=== PATIENT | female | born 1945 | race Caucasian/White ===

== ENCOUNTER 2016-10-09 15:50 | Inpatient (IN) | payer OTHER, MEDICARE ==
[~2016-10-09] VITALS: Ht 162.6 cm; Wt 69.5 kg
[~2016-10-09 15:50] MED LIST: AMLODIPINE BESYL5 MG PO; CHLORTHALIDONE25 MG PO; CIPRO500 MG PO; GABAPENTIN300 MG PO; GLUCOPHAGE500 MG PO; JANUVIA25 M1 PO; LEVEMIR100 UNIT/2 SC; LIPITOR40 MG PO; LITE COAT ASPI325 M1 PO; LOSARTAN POTAS100 MG PO; NORCO 10/3251 TABLET PO; NORVASC5 MG PO; PROZAC40 MG PO
[2016-10-09 16:12] LABS: EOSINOPHIL (%) 1.6 % (0-5); EOSINOPHIL COUNT 0.1 K/uL (0-0.3); HEMATOCRIT 40.8 % (36.0-46.0); IMMATURE GRANULOCYTE (%) 0.4 % (0.0-0.7); IMMATURE GRANULOCYTE COUNT 0.3 K/uL; LYMPHOCYTE COUNT 1.3 K/uL (1.0-2.8); MCH 26.7 PG (29.0-34.0); MCHC 33.8 G/DL (30.0-36.0); MCV 79.1 FL (83-99); MEAN PLAT.VOLUME 8.9 uM^3 (9.5-12.4); MONOCYTE (%) 5.8 % (3-12); MONOCYTE COUNT 0.4 K/uL (0-0.8); NEUTROPHIL (%) 72.5 % (45-76); NEUTROPHIL COUNT 4.8 K/uL (1.8-6.4); PLATELET COUNT 165 K/uL (156-360); RED BLOOD COUNT 5.16 M/uL (3.80-5.20); WHITE BLOOD COUNT 6.7 K/uL (4.1-10.2)
[2016-10-09 16:21] LABS: AMYLASE 54 IU/L (1-118); CHLORIDE 98 mEq/L (99-109); POTASSIUM 4.2 mEq/L (3.7-5.4); SODIUM 135 mEq/L (136-147)
[2016-10-09 16:22] LABS: INTER. NORMALIZED RATIO 1.1; PROTHROMBIN TIME 11.1 (9.2-11.2); PTT 25.8 (25-32)
[2016-10-09 16:23] LABS: GLUCOSE 306 mg/dL (70-99)
[2016-10-09 16:24] LABS: ANION GAP 19 MEQ/L (2-14)
[2016-10-09 16:26] LABS: GFR ESTIMATE (CALCULATED) 31 mL/min/; SERUM ETHYL ALCOHOL < 10 mg/dL
[2016-10-09 16:27] LABS: UREA NITROGEN (BUN) 16 mg/dL (9-23)
[2016-10-09 16:29] LABS: LIPASE 24 U/L (1.0-51.0)
[2016-10-09 16:33] LABS: TROP-I INTERPRETATION NEGATIVE; TROPONIN-I < 0.01 ng/mL (0.0-0.30)
[2016-10-09 17:40] LABS: AMPHETAMINE NEGATIVE (500 ng/mL); BENZODIAZEPINES NEGATIVE (150 ng/mL); COCAINE NEGATIVE (150 ng/mL); METHADONE NEGATIVE (200 ng/mL); METHAMPHETAMINE NEGATIVE (500 ng/mL); OPIATES (MORPHINE) PRESUMPTIVE POSITIVE (100 ng/mL); PHENCYCLIDINE NEGATIVE (25 ng/mL); THC CANNABINOIDS NEGATIVE (50 ng/mL); TRICYCLIC ANTIDEPRESSANTS NEGATIVE (300 ng/mL)
[2016-10-09 17:41] LABS: ADD MEDTOX COMMENT Y; BARBITURATES NEGATIVE (200 ng/mL); INTERNAL CONTROLS VALID? YES; OXYCODONE NEGATIVE (100 ng/mL); PROPOXYPHENE NEGATIVE (300 ng/mL)
[2016-10-09] MEDS ORDERED: ASPIRIN EC325 MG PO (17:47)
[2016-10-09] MEDS ORDERED: GLUCOPHAGE1000 MG PO (17:49)
[2016-10-09] MEDS ORDERED: VENLAFAXINE HC150 M1 PO (17:50)
[2016-10-09 18:05] LABS: COLOR LT. YELLOW ((YELLOW)); LEUKOCYTES NEGATIVE; NITRITE NEGATIVE
[2016-10-09 18:06] LABS: ADD MIUA? YES; BILIRUBIN NEGATIVE; BLOOD NEGATIVE; GLUCOSE (STRIP) 250; KETONES NEGATIVE; PROTEIN (STRIP) 30; UROBILINOGEN 0.2 MG/DL (0.2-1.0)
[2016-10-09 22:45] VITALS: BP 132/72
[2016-10-10 04:00] VITALS: BP 124/69
[2016-10-10 07:52] VITALS: BP 126/62
[2016-10-10 08:14] LABS: HEMATOCRIT 34.7 % (36.0-46.0); MCH 27.1 PG (29.0-34.0); MCHC 33.4 G/DL (30.0-36.0); MCV 81.1 FL (83-99); MEAN PLAT.VOLUME 9.8 uM^3 (9.5-12.4); PLATELET COUNT 112 K/uL (156-360); RBC DIS.WIDTH-CV 14.1 % (11.8-14.6); RBC DIS.WIDTH-SD 41.4 % (39-53); RED BLOOD COUNT 4.28 M/uL (3.80-5.20); WHITE BLOOD COUNT 4.4 K/uL (4.1-10.2)
[2016-10-10 08:31] LABS: HDL CHOLESTEROL 29 MG/DL (Desirable>=50); LDL CHOLESTEROL 128 mg/dL (Desirable<100); NON-HDL CHOLESTEROL 192 mg/dL (Desirable<160); TOTAL CHOLESTEROL 221 mg/dL (Desirable<200); TRIGLYCERIDES 320 MG/DL (Normal: <150)
[2016-10-10 08:35] LABS: Estimated Average Glucose 272 mg/dL (70-123); HEMOGLOBIN A1c (GLYCOHEMOGLOB) 11.1 % HGB (Below 5.7)
[2016-10-10 11:27] VITALS: BP 137/63
[2016-10-10 15:28] VITALS: BP 143/65
[2016-10-10 20:00] VITALS: BP 152/71
[2016-10-10 21:43] LABS: POINT-OF-CARE METER ID UU14174225
[2016-10-10 23:40] VITALS: BP 158/74
[2016-10-11 04:00] VITALS: BP 144/75
[2016-10-11 07:45] VITALS: BP 121/65
[2016-10-11 10:51] VITALS: BP 145/61
[2016-10-11 15:12] VITALS: BP 145/76
[2016-10-11 19:50] VITALS: BP 177/88
[2016-10-11 21:24] LABS: POINT-OF-CARE METER ID UU14174225
[2016-10-11 22:00] VITALS: BP 194/88
[2016-10-12 00:48] VITALS: BP 188/86
[2016-10-12 04:00] VITALS: BP 164/78
[2016-10-12 07:42] LABS: POINT-OF-CARE METER ID UU14174225
[2016-10-12 08:20] VITALS: BP 146/71
[2016-10-12 11:49] VITALS: BP 153/75
[2016-10-12 11:58] LABS: POINT-OF-CARE METER ID UU14174225
[2016-10-12 16:10] VITALS: BP 173/61
[2016-10-12 16:36] LABS: POINT-OF-CARE METER ID UU14174225
[2016-10-12 19:34] VITALS: BP 150/72
[2016-10-12 21:49] LABS: POINT-OF-CARE METER ID UU14174225
[2016-10-13] VITALS: BP 159/86
[2016-10-13 04:00] VITALS: BP 138/73
[2016-10-13 07:29] VITALS: BP 143/68
[2016-10-13] MEDS ORDERED: KEFLEX500 MG PO (08:54)
[2016-10-13 11:55] LABS: POINT-OF-CARE METER ID UU14174225
== END 2016-10-13 14:04 | DRG 65 ==
LOC: EME 15:50 → 5SOUTH 18:42 → EDOF 18:42 → 5SOUTH 22:37
PROVIDERS: Emergency Medicine; Family Medicine; Internal Medicine
DX: I63.9 Cerebral infarction, unspecified (principal); N17.9 Acute kidney failure, unspecified; E11.621 Type 2 diabetes mellitus with foot ulcer; L97.519 Non-pressure chronic ulcer of other part of right foot with unspecified severity; L03.031 Cellulitis of right toe; E11.42 Type 2 diabetes mellitus with diabetic polyneuropathy; E11.51 Type 2 diabetes mellitus with diabetic peripheral angiopathy without gangrene; M62.81 Muscle weakness (generalized); R25.1 Tremor, unspecified; E11.65 Type 2 diabetes mellitus with hyperglycemia; D69.6 Thrombocytopenia, unspecified; I10 Essential (primary) hypertension; R47.9 Unspecified speech disturbances; D86.9 Sarcoidosis, unspecified; E78.5 Hyperlipidemia, unspecified; Z79.4 Long term (current) use of insulin; Z86.73 Personal history of transient ischemic attack (TIA), and cerebral infarction without residual deficits
CPT/HCPCS: 70450; 70551; 73630; 80048; 80061; 81003; 82150; 82565; 82948; 83036; 83690; 84484; 84999; 85025; 85027; 85610; 85651; 85730; 86140; 86850; 86900; 86901; 87040; 87070; 87075; 87205; 92523 GN; 93880; 93926; 99281; 99285; G0008; G0480; J0690; J1644; J1815; J1953; J2060; J2250; J2543; J7030; J7050

== ENCOUNTER 2016-10-13 08:32 | Inpatient (IN) | payer OTHER, MEDICARE ==
[~2016-10-13] VITALS: Ht 162.6 cm; Wt 65.2 kg
[~2016-10-13 08:32] MED LIST changes: +ASPIRIN EC325 MG PO; +GLUCOPHAGE1000 MG PO; +VENLAFAXINE HC150 M1 PO
[2016-10-13] MEDS ORDERED: KEFLEX500 MG PO (08:54)
[2016-10-13 14:46] VITALS: BP 151/70
[2016-10-13 16:50] LABS: POINT-OF-CARE METER ID UU13113720
[2016-10-13 16:54] LABS: MCH 26.2 PG (29.0-34.0); MCHC 32.4 G/DL (30.0-36.0); MCV 80.7 FL (83-99); MEAN PLAT.VOLUME 9.6 uM^3 (9.5-12.4); PLATELET COUNT 96 K/uL (156-360); RBC DIS.WIDTH-CV 13.8 % (11.8-14.6); RBC DIS.WIDTH-SD 40.1 % (39-53); RED BLOOD COUNT 4.09 M/uL (3.80-5.20); WHITE BLOOD COUNT 3.1 K/uL (4.1-10.2)
[2016-10-13 17:19] LABS: ALKALINE PHOSPHATASE 107 IU/L (3-129); ANION GAP 9 MEQ/L (2-14); CHLORIDE 105 MEQ/L (99-109); GFR ESTIMATE (CALCULATED) 58 mL/min/; GLUCOSE 179 mg/dL (70-99); SAMPLE HEMOLYSIS CHECK 0; SAMPLE ICTERIC CHECK 0; SAMPLE LIPEMIA CHECK 0; SODIUM 138 MEQ/L (136-147); TOTAL BILIRUBIN 0.3 MG/DL (0.0-1.0); UREA NITROGEN (BUN) 17 mg/dL (9-23)
[2016-10-13 21:22] LABS: POINT-OF-CARE METER ID UU14174215
[2016-10-14] VITALS: BP 158/82
[2016-10-14 04:00] VITALS: BP 141/72
[2016-10-14 07:24] LABS: POINT-OF-CARE METER ID UU14174215
[2016-10-14 11:57] LABS: POINT-OF-CARE METER ID UU13113720; POINT-OF-CARE USER ID AHSSSJB31
[2016-10-14 15:29] VITALS: BP 146/68
[2016-10-14 16:12] LABS: POINT-OF-CARE METER ID UU13113720
[2016-10-14 21:50] LABS: POINT-OF-CARE METER ID UU13113720
[2016-10-15 04:00] VITALS: BP 132/63
[2016-10-15 07:06] LABS: POINT-OF-CARE METER ID UU13113720
[2016-10-15 11:32] LABS: POINT-OF-CARE METER ID UU13113720
[2016-10-15 15:57] VITALS: BP 135/71
[2016-10-15 16:49] LABS: POINT-OF-CARE METER ID UU13113720
[2016-10-15 21:25] LABS: POINT-OF-CARE METER ID UU13113720; POINT-OF-CARE USER ID 610211320
[2016-10-15 22:37] LABS: C DIFF TOXIN NEGATIVE (NEGATIVE); PROBE CHECK PASS; SPECIMEN PROCESSING CONTROL PASS
[2016-10-16 05:10] VITALS: BP 124/59
[2016-10-16 07:13] LABS: POINT-OF-CARE METER ID UU13113720
[2016-10-16 11:47] LABS: POINT-OF-CARE METER ID UU13113720
[2016-10-16 15:23] VITALS: BP 134/65
[2016-10-16 16:32] LABS: POINT-OF-CARE METER ID UU13113720
[2016-10-16 21:47] LABS: POINT-OF-CARE METER ID UU13113720
[2016-10-17 05:15] VITALS: BP 136/82
[2016-10-17 05:37] LABS: HEMATOCRIT 32.8 % (36.0-46.0); MCH 26.4 PG (29.0-34.0); MCHC 32.6 G/DL (30.0-36.0); MEAN PLAT.VOLUME 9.6 uM^3 (9.5-12.4); PLATELET COUNT 107 K/uL (156-360); RBC DIS.WIDTH-CV 14.1 % (11.8-14.6); RBC DIS.WIDTH-SD 41.5 % (39-53); RED BLOOD COUNT 4.05 M/uL (3.80-5.20); WHITE BLOOD COUNT 3.2 K/uL (4.1-10.2)
[2016-10-17 06:12] LABS: ALKALINE PHOSPHATASE 111 IU/L (3-129); ANION GAP 13 MEQ/L (2-14); CHLORIDE 103 MEQ/L (99-109); GFR ESTIMATE (CALCULATED) 58 mL/min/; GLUCOSE 130 mg/dL (70-99); POTASSIUM 4.4 MEQ/L (3.7-5.4); SAMPLE HEMOLYSIS CHECK 0; SAMPLE ICTERIC CHECK 0; SAMPLE LIPEMIA CHECK 0; SODIUM 139 MEQ/L (136-147); UREA NITROGEN (BUN) 24 mg/dL (9-23)
[2016-10-17 06:24] LABS: TOTAL BILIRUBIN 0.8 MG/DL (0.0-1.0)
[2016-10-17 07:30] LABS: POINT-OF-CARE METER ID UU14174215
[2016-10-17 11:47] LABS: POINT-OF-CARE METER ID UU14174215
[2016-10-17] MEDS ORDERED: ASPIRIN EC325 MG PO (14:43)
[2016-10-17] MEDS ORDERED: AMLODIPINE BESYL5 MG PO (14:43)
[2016-10-17] MEDS ORDERED: BACTROBAN OINTM22 GM TP (14:43)
[2016-10-17] MEDS ORDERED: KEFLEX500 MG PO (14:43)
[2016-10-17] MEDS ORDERED: GLUCOPHAGE1000 MG PO (14:43)
[2016-10-17] MEDS ORDERED: GABAPENTIN300 MG PO (14:43)
[2016-10-17] MEDS ORDERED: LIPITOR40 MG PO (14:43)
[2016-10-17 15:11] VITALS: BP 128/68
[2016-10-17 16:20] LABS: POINT-OF-CARE METER ID UU14174215
[2016-10-17 21:48] LABS: POINT-OF-CARE METER ID UU13113720
[2016-10-18 04:57] VITALS: BP 150/72
[2016-10-18 08:10] LABS: POINT-OF-CARE METER ID UU14174215
== END 2016-10-18 13:13 | DRG 41 ==
LOC: 3WEST 08:32
PROVIDERS: Physical Medicine & Rehabilitation Pain Medicine; Psychiatry & Neurology Neurology
PROC: F07M0ZZ Range of Motion and Joint Mobility Treatment of Musculoskeletal System - Whole Body (ICD-10-PCS; principal; 2016-10-13)
PROC: 0HBMXZZ Excision of Right Foot Skin, External Approach (ICD-10-PCS; 2016-10-14)
DX: I69.354 Hemiplegia and hemiparesis following cerebral infarction affecting left non-dominant side (principal); N39.0 Urinary tract infection, site not specified; L89.311 Pressure ulcer of right buttock, stage 1; L89.321 Pressure ulcer of left buttock, stage 1; E11.42 Type 2 diabetes mellitus with diabetic polyneuropathy; E11.621 Type 2 diabetes mellitus with foot ulcer; E11.69 Type 2 diabetes mellitus with other specified complication; D69.6 Thrombocytopenia, unspecified; L97.519 Non-pressure chronic ulcer of other part of right foot with unspecified severity; L03.031 Cellulitis of right toe; I10 Essential (primary) hypertension; E78.00 Pure hypercholesterolemia, unspecified; R26.2 Difficulty in walking, not elsewhere classified; Z79.4 Long term (current) use of insulin; D72.819 Decreased white blood cell count, unspecified; Z87.442 Personal history of urinary calculi; D86.9 Sarcoidosis, unspecified; Z86.73 Personal history of transient ischemic attack (TIA), and cerebral infarction without residual deficits; Z79.84 Long term (current) use of oral hypoglycemic drugs; Z74.09 Other reduced mobility
CPT/HCPCS: 80053; 82948; 85027; 87086; 87493; 93306; 94799; 97110 GO; 97530 GP; J1644; J1815

== ENCOUNTER → 2017-07-08 | Outpatient (CLI) | payer MEDICARE, OTHER ==
[~2017-07-08] MED LIST changes: +BACTROBAN OINTM22 GM TP; +KEFLEX500 MG PO
== END | disposition home or self-care (01) ==
LOC: CDC 11:37
DX: Z01.810 Encounter for preprocedural cardiovascular examination (principal); M79.645 Pain in left finger(s); S63.287D Dislocation of proximal interphalangeal joint of left little finger, subsequent encounter; R94.31 Abnormal electrocardiogram [ECG] [EKG]
CPT/HCPCS: 93000

== ENCOUNTER 2017-11-20 19:12 | Inpatient (IN) | payer OTHER ==
[~2017-11-20] VITALS: Ht 170.2 cm; Wt 71.3 kg
[2017-11-20 19:34] LABS: BASOPHIL (%) 0.3 % (0-1); EOSINOPHIL (%) 4.9 % (0-5); EOSINOPHIL COUNT 0.2 K/uL (0-0.3); HEMATOCRIT 31.6 % (36.0-46.0); HEMOGLOBIN 10.2 G/DL (11.9-15.5); IMMATURE GRANULOCYTE (%) 0.3 % (0.0-0.7); LYMPHOCYTE (%) 29.4 % (15-42); LYMPHOCYTE COUNT 0.9 K/uL (1.0-2.8); MCH 24.5 PG (29.0-34.0); MCHC 32.3 G/DL (30.0-36.0); MONOCYTE (%) 8.7 % (3-12); MONOCYTE COUNT 0.3 K/uL (0-0.8); NEUTROPHIL (%) 56.4 % (45-76); NEUTROPHIL COUNT 1.7 K/uL (1.8-6.4); PLATELET COUNT 132 K/uL (156-360); RBC DIS.WIDTH-SD 38.1 % (39-53); RED BLOOD COUNT 4.16 M/uL (3.80-5.20); WHITE BLOOD COUNT 3.1 K/uL (4.1-10.2)
[2017-11-20 19:42] LABS: AMYLASE 86 IU/L (1-118); CHLORIDE 99 mEq/L (99-109); POTASSIUM 4.1 mEq/L (3.7-5.4); SODIUM 132 mEq/L (136-147)
[2017-11-20 19:44] LABS: PTT 27.5 SEC (25-37)
[2017-11-20 19:47] LABS: CREATININE 1.4 mg/dL (0.6-1.3); GFR ESTIMATE (CALCULATED) 39 mL/min/; GLUCOSE 455 mg/dL (70-99); SERUM ETHYL ALCOHOL < 10 mg/dL
[2017-11-20 19:48] LABS: UREA NITROGEN (BUN) 19 mg/dL (9-23)
[2017-11-20 19:50] LABS: LIPASE 61 U/L (1.0-51.0)
[2017-11-20 19:57] LABS: TROP-I INTERPRETATION NEGATIVE; TROPONIN-I < 0.01 ng/mL (0.0-0.30)
[2017-11-20] MEDS ORDERED: LIPITOR40 MG PO (22:40)
[2017-11-20] MEDS ORDERED: NORVASC5 MG PO (22:40)
[2017-11-20] MEDS ORDERED: PROZAC40 MG PO (22:40)
[2017-11-20] MEDS ORDERED: GABAPENTIN300 MG PO (22:41)
[2017-11-20] MEDS ORDERED: LO-DOSE ASPIRIN81 M2 PO (22:41)
[2017-11-20] MEDS ORDERED: METFORMIN HCL1000 MG PO (22:42)
[2017-11-20] MEDS ORDERED: NORCO 10/3251 TABLET PO (22:43)
[2017-11-20] MEDS ORDERED: CLEOCIN300 MG PO (22:44)
[2017-11-20] MEDS ORDERED: LEVEMIR FL100 UNIT/1 SC (22:45)
[2017-11-21 03:18] VITALS: BP 162/72
[2017-11-21 06:58] LABS: HEMATOCRIT 30.4 % (36.0-46.0); HEMOGLOBIN 9.9 G/DL (11.9-15.5); MCH 24.4 PG (29.0-34.0); MCHC 32.6 G/DL (30.0-36.0); MCV 75.1 FL (83-99); PLATELET COUNT 112 K/uL (156-360); RBC DIS.WIDTH-CV 13.9 % (11.8-14.6); RBC DIS.WIDTH-SD 37.4 % (39-53); RED BLOOD COUNT 4.05 M/uL (3.80-5.20); WHITE BLOOD COUNT 3.3 K/uL (4.1-10.2)
[2017-11-21 07:20] LABS: ALBUMIN 3.5 G/DL (3.2-4.8); ALKALINE PHOSPHATASE 161 IU/L (3-129); ALT (GPT) 16 IU/L (3-49); AST (GOT) 17 IU/L (2-34); CHLORIDE 102 MEQ/L (99-109); GFR ESTIMATE (CALCULATED) 58 mL/min/; GLUCOSE 284 mg/dL (70-99); SODIUM 132 MEQ/L (136-147); TOTAL BILIRUBIN 0.5 MG/DL (0.0-1.0); TOTAL PROTEIN 5.5 G/DL (6.4-8.3); UREA NITROGEN (BUN) 15 mg/dL (9-23)
[2017-11-21 07:32] VITALS: BP 140/67
[2017-11-21 08:19] LABS: HDL CHOLESTEROL 26 MG/DL (Desirable>=50); LDL CHOLESTEROL 45 mg/dL (Desirable<100); NON-HDL CHOLESTEROL 76 mg/dL (Desirable<160); TOTAL CHOLESTEROL 102 mg/dL (Desirable<200); TRIGLYCERIDES 154 MG/DL (Normal: <150)
[2017-11-21 16:16] VITALS: BP 134/61
[2017-11-22] VITALS (7 sets, daily range): BP systolic 126–161; BP diastolic 66–72
[2017-11-22 09:40] LABS: HEMOGLOBIN A1c (GLYCOHEMOGLOB) 10.6 % (Below 5.7)
[2017-11-22] MEDS ORDERED: FISH OIL 1,0001 EAC7 PO (16:11)
[2017-11-22] MEDS ORDERED: CYANOCOBALAM1000 MCG PO (16:12)
[2017-11-22] MEDS ORDERED: ARTIFICIAL TEAR15 M1 BOTH EYES (16:13)
[2017-11-23 04:06] VITALS: BP 130/66
[2017-11-23 07:34] VITALS: BP 133/75
[2017-11-23] MEDS ORDERED: ATORVASTATIN CA80 MG PO (09:18)
[2017-11-23] MEDS ORDERED: ASPIR 8181 M1 PO (09:19)
[2017-11-23] MEDS ORDERED: PLAVIX75 MG PO (09:19)
[2017-11-23] MEDS ORDERED: LEVEMIR FL100 UNIT/1 SC (09:21)
[2017-11-23 11:24] VITALS: BP 131/77
== END 2017-11-23 16:37 | disposition home health service (06) | DRG 64 ==
LOC: EME → EDBD 19:12 → EME 19:12 → EDOF 11-21 00:45 → ENRESERV 11-21 00:49 → 5SOUTH 11-21 03:12 → ENPENDDIS 11-23 12:17 → 5SOUTH 11-23 16:37
PROVIDERS: Emergency Medicine; Hospitalist; Internal Medicine; Physician Assistant Medical
DX: I63.9 Cerebral infarction, unspecified (principal); E11.10 Type 2 diabetes mellitus with ketoacidosis without coma; E78.5 Hyperlipidemia, unspecified; G81.91 Hemiplegia, unspecified affecting right dominant side; I10 Essential (primary) hypertension; I65.22 Occlusion and stenosis of left carotid artery; R47.01 Aphasia; F32.9 Major depressive disorder, single episode, unspecified; Z66 Do not resuscitate; D86.9 Sarcoidosis, unspecified; Z87.442 Personal history of urinary calculi; Z79.82 Long term (current) use of aspirin; Z82.3 Family history of stroke; Z79.4 Long term (current) use of insulin; Z86.73 Personal history of transient ischemic attack (TIA), and cerebral infarction without residual deficits; Z79.02 Long term (current) use of antithrombotics/antiplatelets
CPT/HCPCS: 70450; 70496; 70498; 70551; 80047; 80048; 80053; 80061; 81003; 82150; 82948; 83036; 83690; 84484; 85025; 85027; 85610; 85730; 86850; 86900; 86901; 92523 GN; 93306; 99281; 99284; G0480; J1644; J1815

== ENCOUNTER 2018-05-31 15:54 | Inpatient (IN) | payer OTHER ==
[~2018-05-31] VITALS: Ht 162.6 cm; Wt 64.7 kg
[~2018-05-31 15:54] MED LIST changes: +ARTIFICIAL TEAR15 M1 BOTH EYES; +ASPIR 8181 M1 PO; +ATORVASTATIN CA80 MG PO; +CLEOCIN300 MG PO; +CYANOCOBALAM1000 MCG PO; +FISH OIL 1,0001 EAC7 PO; +LEVEMIR FL100 UNIT/1 SC; +LO-DOSE ASPIRIN81 M2 PO; +METFORMIN HCL1000 MG PO; +PLAVIX75 MG PO
[2018-05-31 16:57] LABS: BASOPHIL (%) 0.3 % (0-1); EOSINOPHIL (%) 3.1 % (0-5); EOSINOPHIL COUNT 0.1 K/uL (0-0.3); HEMATOCRIT 32.6 % (36.0-46.0); HEMOGLOBIN 10.5 G/DL (11.9-15.5); IMMATURE GRANULOCYTE (%) 0.3 % (0.0-0.7); LYMPHOCYTE (%) 19.8 % (15-42); LYMPHOCYTE COUNT 0.6 K/uL (1.0-2.8); MCH 25.7 PG (29.0-34.0); MCHC 32.2 G/DL (30.0-36.0); MCV 79.9 FL (83-99); MONOCYTE COUNT 0.3 K/uL (0-0.8); NEUTROPHIL (%) 68.5 % (45-76); NEUTROPHIL COUNT 2.2 K/uL (1.8-6.4); PLATELET COUNT 117 K/uL (156-360); RBC DIS.WIDTH-CV 14.5 % (11.8-14.6); RED BLOOD COUNT 4.08 M/uL (3.80-5.20); WHITE BLOOD COUNT 3.2 K/uL (4.1-10.2)
[2018-05-31 17:03] LABS: INTER. NORMALIZED RATIO 1.2
[2018-05-31 17:06] LABS: CHLORIDE 108 mEq/L (99-109); POTASSIUM 4.4 mEq/L (3.7-5.4); PTT 26.8 SEC (25-37); SODIUM 142 mEq/L (136-147)
[2018-05-31 17:09] LABS: GLUCOSE 161 mg/dL (70-99); TOTAL PROTEIN 6.6 g/dL (6.4-8.3)
[2018-05-31 17:10] LABS: TOTAL BILIRUBIN 0.7 mg/dL (0.0-1.0)
[2018-05-31 17:12] LABS: ALKALINE PHOSPHATASE 174 IU/L (3-129); CREATININE 0.9 mg/dL (0.6-1.3); GFR ESTIMATE (CALCULATED) > 59 mL/min/
[2018-05-31 17:13] LABS: UREA NITROGEN (BUN) 12 mg/dL (9-23)
[2018-05-31 17:14] LABS: AST (GOT) 23 IU/L (2-34); DIRECT BILIRUBIN 0.3 mg/dL (0.0-0.3)
[2018-05-31 17:15] LABS: ALT (GPT) 26 IU/L (3-49)
[2018-05-31 17:18] LABS: TROP-I INTERPRETATION NEGATIVE; TROPONIN-I < 0.01 ng/mL (0.0-0.30)
[2018-05-31] MEDS ORDERED: PLAVIX75 MG PO (19:29)
[2018-05-31] MEDS ORDERED: LIPITOR80 MG PO (19:30)
[2018-05-31] MEDS ORDERED: LO-DOSE ASPIRIN81 M2 PO (19:31)
[2018-05-31] MEDS ORDERED: LEVEMIR FL100 UNIT/1 SC (19:36)
[2018-05-31] MEDS ORDERED: METFORMIN HCL500 M1 PO (19:43)
[2018-05-31 19:44] LABS: APPEARANCE CLEAR ((CLEAR)); BILIRUBIN NEGATIVE; BLOOD NEGATIVE; COLOR STRAW ((YELLOW)); GLUCOSE (STRIP) NEGATIVE; KETONES NEGATIVE; LEUKOCYTES NEGATIVE; NITRITE NEGATIVE; PROTEIN (STRIP) 100; SPECIFIC GRAVITY 1.009 (1.000-1.030); UROBILINOGEN 0.2 MG/DL (0.2-1.0)
[2018-05-31] MEDS ORDERED: HYDROCODON-ACE1 EAC9 PO (19:44)
[2018-05-31] MEDS ORDERED: CLOPIDOGREL75 MG PO (19:44)
[2018-05-31] MEDS ORDERED: FLUOXETINE HCL40 MG PO (19:44)
[2018-05-31] MEDS ORDERED: AMLODIPINE BESYL5 MG PO (19:44)
[2018-05-31 19:47] LABS: BACTERIA RARE /HPF; EPITHELIAL CELLS RARE /HPF; MUCUS TRACE /LPF; RED BLOOD CELLS NONE SEEN /HPF (0-5); UCUL ADDED? NO; WHITE BLOOD CELLS 0-5 /HPF (0-5)
[2018-05-31 21:22] LABS: HDL CHOLESTEROL 25 MG/DL (Desirable>=50); LDL CHOLESTEROL 48 mg/dL (Desirable<100); NON-HDL CHOLESTEROL 83 mg/dL (Desirable<160); TOTAL CHOLESTEROL 108 mg/dL (Desirable<200); TRIGLYCERIDES 177 MG/DL (Normal: <150)
[2018-05-31 21:59] VITALS: BP 160/72
[2018-06-01 00:16] VITALS: BP 156/80
[2018-06-01 01:48] LABS: TROP-I INTERPRETATION NEGATIVE; TROPONIN-I < 0.01 ng/mL (0.0-0.30)
[2018-06-01 04:29] VITALS: BP 157/70
[2018-06-01 05:42] LABS: HEMATOCRIT 29.4 % (36.0-46.0); HEMOGLOBIN 9.4 G/DL (11.9-15.5); MCH 25.4 PG (29.0-34.0); MCV 79.5 FL (83-99); PLATELET COUNT 116 K/uL (156-360); RBC DIS.WIDTH-CV 14.4 % (11.8-14.6); RBC DIS.WIDTH-SD 41.7 % (39-53); WHITE BLOOD COUNT 2.5 K/uL (4.1-10.2)
[2018-06-01 05:48] LABS: TROP-I INTERPRETATION NEGATIVE; TROPONIN-I < 0.01 ng/mL (0.0-0.30)
[2018-06-01 07:49] VITALS: BP 168/77
[2018-06-01 10:55] LABS: HEMOGLOBIN A1c (GLYCOHEMOGLOB) 6.8 % (Below 5.7)
[2018-06-01 12:21] VITALS: BP 143/71
[2018-06-01 16:08] VITALS: BP 157/75
[2018-06-01 19:47] VITALS: BP 151/72
[2018-06-02] VITALS (7 sets, daily range): BP systolic 135–177; BP diastolic 68–84
[2018-06-03 00:08] VITALS: BP 137/71
[2018-06-03 03:45] VITALS: BP 163/74
[2018-06-03 08:12] VITALS: BP 128/71
[2018-06-03 11:52] VITALS: BP 130/74
[2018-06-03] MEDS ORDERED: NORCO 10/3251 TABLET PO (12:01)
[2018-06-03 15:34] VITALS: BP 130/72
== END 2018-06-03 20:22 | DRG 65 ==
LOC: EME 15:54 → 5SOUTH 20:02 → EDOF 20:02 → ENRESERV 20:03 → 5SOUTH 21:42
PROVIDERS: Emergency Medicine; Hospitalist
DX: I63.9 Cerebral infarction, unspecified (principal); D61.818 Other pancytopenia; E11.9 Type 2 diabetes mellitus without complications; I10 Essential (primary) hypertension; E78.5 Hyperlipidemia, unspecified; Z79.02 Long term (current) use of antithrombotics/antiplatelets; Z79.4 Long term (current) use of insulin; Z79.82 Long term (current) use of aspirin; Z86.73 Personal history of transient ischemic attack (TIA), and cerebral infarction without residual deficits
CPT/HCPCS: 70450; 70551; 80048; 80061; 80076; 81003; 82948; 83036; 84484; 85025; 85027; 85610; 85730; 97530 GO; 99281; 99285; J1644; J1815